=== PATIENT | male | born 1970 | race Caucasian/White ===

== ENCOUNTER 2021-11-21 13:45 | Emergency (ER) | payer OTHER, SELFPAY ==
[2021-11-21 13:52] VITALS: BP 129/88; PULSE 66; RESP 18; TEMP 36.3; O2SAT 94; BMI 26.6
--- NOTE | 2021-11-21 14:28 | ED_ITS ---
HPI - General Adult General Time Seen by Provider: 14:28 Date Seen: 11/21/21 Chief complaint: Neuro Symptoms/Altered Deficit Stated complaint: Right Side Facial Numbness Time Seen by Provider: 11/21/21 14:12 Source: patient and RN notes reviewed Mode of arrival: ambulatory Limitations: no limitations History of Present Illness HPI narrative: Patient is a 51-year-old male who noticed drooping of the corner of his mouth yesterday. He went to drink water and that is when he noticed some leakage of the liquid. Throughout the day he noted his eye was dry not closing all the way. He felt a little better this morning when he 1st got up but then noted that his mouth was still droopy, IA still [address] Denies any visual changes, no headache, no fevers chills. He has not noticed any alteration of taste but right-sided his mouth felt dry this morning. He has noted no ear pain, no hearing changes. Is only on the right side. Did review with him that there can be an association with Lyme disease but that typically is when it is bilateral. He did some reading is worried about brain tumors and strokes. Related Data Previous Rx's Medication Instructions Recorded prednisone 20 mg tablet 40 mg PO BID #28 tabs 11/21/21 valacyclovir 1 gram tablet 1,000 mg PO TID #21 tabs 11/21/21 Allergies Allergy/AdvReac Type Severity Reaction Status Date / Time No Known Drug Allergies Allergy Verified 11/21/21 13:58 Review of Systems Narrative: As per HPI Exam Const: Vital Signs, click to edit/add: Vital Signs - 24 hr 11/21/21 13:52 Temperature 97.4 F L Pulse Rate [Pulse Oximeter] 66 Respiratory Rate 18 Blood Pressure [Ri ght Upper Arm] 129/88 Pulse Oximetry 94 Oxygen Delivery Me thod Room Air Documenting provider has reviewed patient's vital signs: yes Common norm als: no apparent distress, oriented x3, no limitations, healthy appearing, alert and well nourished General appearance: cooperative, comfortable and well kempt Nutritional appearance: thin HENMT: Common normals: head/scalp atraumatic, hearing grossly normal bilaterally, external ears normal, EAC's normal, TM's normal bilaterally, external nose normal, nasal mucous membranes and turbinates normal, moist oral mucous membranes, oropharynx normal, dentition normal and gingiva normal Head and scalp: atraumatic Nose: external nose normal and nasal mucous membranes and turbinates normal External ear: external ears normal External auditory canal: EAC's normal Tympanic membrane: TM's normal bilaterally Other: Patient baseline has no blink reflex on the right side, IA does not close completely. He cannot raise his eyebrows symmetrically on the right side. There is maybe a little bit of raising of the right eyebrow but is certainly much more diminished than the left side. He has right facial droop. Tongue does protrude midline oropharynx looks normal. Has perceived normal light touch sensation symmetrically. Eye: Common normals: PERRL, EOMs intact bilaterally, conjunctivae normal and no scleral icterus Conjunctiva: conjunctiva(e) normal Pupil: PERRL Neck & C-Spine: Common normals: full ROM, no lymphadenopathy, supple, no meningeal signs, no JVD and thyroid normal Thyroid: thyroid normal Resp: Common normals: normal respiratory effort, no retractions, no use of accessory muscles and clear to auscultation bilaterally Auscultation: clear to auscultation bilaterally Cardio: Common normals: no JVD, regular rate, regular rhythm, S1 normal heart sound, S2 normal heart sound, no gallops, no clicks and no murmurs Rate: regular rate Rhythm: regular rhythm Heart sounds: S1 normal and S2 normal Neuro: Common normals: oriented x3 Sensorium/orientation: alert Meningeal signs: no meningeal signs Psych: Appearance: well kempt Course Course Hospital Course: Have reviewed with patient that this is classic presentation of Miranda's palsy. There is involvement in upper motor muscles of his face. There is always the remote possibility that there can be a crossover between stroke, tumor, bowels. Have reviewed with him that typically will have patient follow-up with ENT and if symptoms are not improving or becoming significantly dense, then ENT can order imaging. Vital Signs Vital signs: Initial Vital Signs Temperature 97.4 F L 11/21/21 13:52 Temperature Source Temporal Artery Scan 11/21/21 13:52 Pulse Rate 66 11/21/21 13:52 Pulse Rhythm 11/21/21 13:52 Respiratory Rate 18 11/21/21 13:52 Blood Pressure 129/88 11/21/21 13:52 Blood Pressure Mean 101 11/21/21 13:52 Pulse Oximetry 94 08/12/22 13:52 Oxygen Delivery Method 11/21/21 13:52 Vital Signs Temperature 97.4 F L 11/21/21 13:52 Pulse Rate 66 11/21/21 13:52 Respiratory Rate 18 11/21/21 13:52 Blood Pressure 129/88 11/21/21 13:52 Pulse Oximetry 94 11/21/21 13:52 Oxygen Delivery Method 11/21/21 13:52 Temperature 97.4 F L 11/21/21 13:52 Pulse Rate 66 11/21/21 13:52 Respiratory Rate 18 11/21/21 13:52 Blood Pressure 129/88 11/21/21 13:52 Pulse Oximetry 94 11/21/21 13:52 Oxygen Delivery Method 11/21/21 13:52 Critical Care Time Critical Care Time Critical Care Time: No Discharge Plan Discharge Clinical Impression: Miranda's palsy Patient Disposition: Home, Self-Care Condition: Stable Instructions: Miranda Palsy (ED) Additional Instructions: Need good diligent eye care to prevent drying of the right eye. Use saline eye drops every hour or as frequently as needed to keep the eye moist. At night recommend getting lubricating ointment and paper tape to tape the eye shut. You will need to take prednisone and valacyclovir as prescribed. These 2 medicines can help prevent progression of symptomatology. Do recommend follow-up with ENT. They may opt to do further neuro imaging if this is not resolving but will leave that decision making to them. Dr. [place] in the ENT here. Activity Level: Activity as Tolerated Prescriptions: New prednisone 20 mg tablet 40 mg PO BID Qty: 28 0RF valacyclovir 1 gram tablet 1,000 mg PO TID Qty: 21 0RF Stand Alone Forms: MyHealth Info Instructions
== END 2021-11-21 15:13 | disposition home or self-care (01) ==
LOC: ED 15:03
PROVIDERS: Emergency Provider Family Medicine; PCP Family Medicine
DX: G51.0 Bell's palsy (principal)
CPT/HCPCS: 99283